=== PATIENT | male | born 1960 | race Caucasian/White ===

== ENCOUNTER 2016-10-20 07:19 | Day surgery (SDC) | payer BC ==
--- NOTE | 2016-10-10 00:19 | HP ---
CC: Dr. Cole Zamarripa * PREOPERATIVE HISTORY AND PHYSICAL: DATE OF PREOPERATIVE HISTORY AND PHYSICAL EXAMINATION: 10/09/16 DATE OF ADMISSION: 10/20/16 This patient is scheduled for same-day surgery admission by Dr. Santoro on 10/20/16. ATTENDING SURGEON: Hermes Santoro MD * (dictated by Lane Lin NP). CHIEF COMPLAINT: Left inguinal hernia. HISTORY OF PRESENT ILLNESS: The patient is a 56-year-old male referred to Dr. Santoro from Dr. Zamarripa for evaluation of a left inguinal hernia. The patient noticed this recently after doing some work at home lifting a railroad tie and noted that a lump popped out in the left groin region. He was able to reduce it and reports mild discomfort and denies any signs or symptoms to suggest incarceration or strangulation. He denies any dysuria. Dr. Santoro examined the patient and notes a reducible left inguinal hernia; the patient has undergone robotic prostatectomy in 2009 and therefore, Dr. Santoro has recommended open left inguinal hernia repair with mesh as a same-day surgery procedure. Dr. Santoro discussed the nature of surgical procedure, the relevant risks and benefits, and today, I reviewed the expected postoperative care and recovery. The patient has had a chance to ask questions and stated that he understands the information and is satisfied with the answers given to his questions. He will sign surgical consent on the day of surgery. PAST MEDICAL HISTORY: Prostate cancer. PAST SURGICAL HISTORY: Robotic prostatectomy, 2009 in [place]. MEDICATIONS: None currently. ALLERGIES: PENICILLIN causes rash. FAMILY HISTORY: No known anesthesia complications, bleeding tendencies or clotting disorders. Father has a history of diabetes, heart disease, and stroke. SOCIAL HISTORY: He is and is a smoker and drinks beer. Denies the use of other substances. 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 REVIEW OF SYSTEMS: General: No fevers, chills, night sweats, excessive fatigue , or weight loss. Endocrine: Diabetes or thyroid disease. Hematologic: No easy bruising or bleeding. No previous blood transfusions. No history of deep vein thrombosis or pulmonary embolism. Respiratory: He is a smoker; denies dyspnea on exertion or cough. Cardiovascular: Denies anginal chest pain or palpitations. Gastrointestinal: No nausea, vomiting, diarrhea, constipation. No change in bowel habits. No heartburn. Genitourinary: No dysuria. No hematuria. Musculoskeletal: No back or joint pain. Skin: No chronic rashes. Neurologic: No headache or blurred vision. General: No previous anesthesia complications. PHYSICAL EXAMINATION GENERAL SURVEY: The patient is a 56-year-old male, well developed, well nourished, in no acute distress. VITAL SIGNS: Height 68 inches, weight 164 pounds, body mass index 24.9. Blood pressure 150/90, pulse 76 and regular, respiratory rate 16, temperature 97.1. HEENT: Benign. NECK: Supple. No cervical lymphadenopathy. LUNGS: Breath sounds bilaterally clear and equal. HEART: Regular rate and rhythm. No murmurs or rubs appreciated. ABDOMEN: Active bowel sounds. Multiple well-healed surgical scars. Soft, nondistended, nontender throughout. No obvious masses, organomegaly, or evidence of umbilical or incisional hernias. Inguinal exam as done by Dr. Santoro revealed a reducible left inguinal hernia. No inguinal hernia noted on the right. Bilateral descended testes. RECTAL EXAM: Deferred. EXTREMITIES: Warm without edema or skin ulcerations. NEUROLOGIC: Alert and oriented x3, steady gait. BACK: No CVA tenderness. SKIN: Warm, dry, and intact. IMPRESSION: Left inguinal hernia. PLAN: Same-day surgery admission by Dr. Santoro on 10/20/16, for open left inguinal hernia with mesh. LANE LIN NP [id number]/[facility] #: [id number] MARGE
[~2016-10-20 07:19] MED LIST: Buffered Lidocaine 0.9% SYRIN* 5 ML/SYR SYRINGE INTRADERM ONE; Clindamycin 900 MG IVPREMIX(* 900 MG/50 ML SDV IV ONE; Famotidine IV* 10 MG/ML 2 ML (20 mg) IV ONE; Famotidine IV* 10 MG/ML 2 ML (20 mg) ONE; Morphine INJ* 2 MG/ML 1 ML CARPUJECT IV PRN; Ondansetron INJ* 2 MG/ML VIAL IV PRN; PROCHLORPERAZINE INJ 5 MG/ML 2 ML VIAL IV PRN; fentaNYL* 50 MCG/ML 2 ML VIAL (100 MCG VIAL) IV PRN; oxyCODONE/Acetamin 5/325 MG* TAB PO PRN
[2016-10-20] MEDS ORDERED: fentaNYL* 50 MCG/ML 2 ML VIAL (100 MCG VIAL) ONE (08:32)
[2016-10-20] MEDS ORDERED: Midazolam* 1 MG/ML 5 ML VIAL (5 MG) ONE (08:32)
[2016-10-20] MEDS ORDERED: KETAMINE HCL* 50 MG/ML 10 ML VIAL ONE (08:32)
[2016-10-20] MEDS ORDERED: Bupivacaine 0.5% SDV PF* 30 ML VIAL ONE (08:59)
[2016-10-20] MEDS ORDERED: Lidocaine 1% INJ* 10 MG/ML 30 ML SDV ONE (08:59)
[2016-10-20] MEDS ORDERED: Ketorolac INJ* 30 MG/ML 1 ML VIAL ONE (10:06)
[2016-10-20] MEDS ORDERED: Propofol* 10 MG/ML 20 ML BTL IV PUSH ONE (10:06)
[2016-10-20] MEDS ORDERED: Lidocaine 2% PF * 5 ML VIAL ONE (10:06)
[2016-10-20] MEDS ORDERED: Ondansetron INJ* 2 MG/ML VIAL ONE (10:06)
--- NOTE | 2016-10-20 10:38 | SURGPN ---
Brief Operative Note - Surgery Procedures: Procedures Preop Dx: L ingunial hernia Postop Dx: L indirect ingunial hernia Procedure: Open L indirect inguinal hernia repair with mesh Anesthesia: MAC - Speer Surgeon: Yvan Ass: GUY Deluca EBL: <10 mL Specimen: none Fluids: 800 mL LR Drains: none Findings: none
[2016-10-20 11:47] VITALS: BP 139/86
--- NOTE | 2016-10-21 12:51 | OP ---
CC: Cole Zamarripa MD OPERATIVE REPORT: DATE OF OPERATION: 10/20/16 DATE OF : 60 SURGEON: Hermes Santoro MD LOCKSTITCH SLEEVE SETTER: DELISA Mehta student. ANESTHESIOLOGIST: Dr. Fuller. ANESTHESIA: Local MAC. PRE-OPERATIVE DIAGNOSIS: Left inguinal hernia. POST-OPERATIVE DIAGNOSIS: Left inguinal hernia. OPERATIVE PROCEDURE: Open left inguinal hernia repair with mesh. ESTIMATED BLOOD LOSS: Minimal. IV FLUIDS: Crystalloid. SPECIMEN: None. DRAINS: None. COMPLICATIONS: None. COUNTS: Needle, instrument, and sponge counts were correct. DESCRIPTION OF PROCEDURE: The patient was brought to the operating room and placed on the table supine. Sequential compression devices were placed on both lower extremities. Intravenous sedation was administered. His left groin was prepped and draped in the usual sterile fashion. Time-out was performed. He received appropriate antibiotics. Local anesthetic was infiltrated into the field block in the left groin. An oblique incision was created approximately 5 cm long, subcutaneous tissues were divided. External oblique aponeurosis was identified and infiltrated with additional anesthetic beneath it and then opened along the line of its fibers through the superficial ring. The underlying ilioinguinal nerve was identified , preserved in the medial position. The contents of the inguinal canal were then isolated with 0.25-inch Gladys drain at the level of the pubic tubercle. An indirect inguinal hernia sac was identified. Cord structures were dissected free from this. The sac was reduced beyond the deep ring and then repair was performed with a polypropylene mesh plug and onlay patch. The plug was fashioned into a cone shape and positioned into the space of the deep ring and sutured to the overlying musculature with interrupted 2-0 Polysorb. An onlay patch was fashioned and sutured to the pubic tubercle, shelving edge of the inguinal ligament and the conjoint tendon with interrupted 2-0 Polysorb sutures. The tails were fashioned in the mesh laterally to allow the egress of the spermatic cord, tacked beneath the external oblique laterally and reconstituted laterally with a single suture of a 2- 0 Surgipro. The ilioinguinal nerve was returned to its anatomic position and the external oblique aponeurosis was run close with 2-0 Polysorb. The Neeraj's was closed with 3-0 Polysorb in an interrupted fashion. Skin was closed with 4-0 Monocryl in a subcuticular fashion. Steri-Strips were applied. The patient tolerated the procedure well, was awakened and transferred to recovery room in stable condition. [id number]/[facility] #: [id number] [facility] [place] [facility]ISION[facility]
== END 2016-10-20 11:50 | disposition home or self-care (01) ==
LOC: OR 07:19
PROVIDERS: ATTEND Surgery
DX: K40.90 Unilateral inguinal hernia, without obstruction or gangrene, not specified as recurrent (principal); Z85.46 Personal history of malignant neoplasm of prostate; Z88.0 Allergy status to penicillin; F17.200 Nicotine dependence, unspecified, uncomplicated
CPT/HCPCS: C1781; J1885; J2001; J2250; J2405; J2704; J3010

== ENCOUNTER 2023-09-23 14:25 | Observation (INO) ==
[2023-09-23 15:14] LABS: INR 1.22 (0.83-1.13)
[2023-09-23 15:20] LABS: Hematocrit 47.4 % (38-53); Hemoglobin 15.9 g/dL (13.2-16.3); Mean Corpuscular Hemoglobin 32.2 pg (27-33); Mean Corpuscular Hgb Conc 33.5 g/dL (31-36); Mean Corpuscular Volume 96.3 fL (80-97); Red Blood Count 4.93 10^6/uL (4.06-5.63); Red Cell Distribution Width 14.4 % (12-17); White Blood Count 6.7 10^3/uL (3.6-10.2)
[2023-09-23 15:30] LABS: High Sens Troponin Baseline 26 pg/mL (<20)
[2023-09-23 15:47] LABS: ABS Basophils 0.1 10^3/uL (0.0-0.1); ABS Eosinophils 0.1 10^3/uL (0.0-0.5); ABS Lymphocytes 1.3 10^3/uL (1.0-4.8); ABS Monocytes 0.6 10^3/uL (0.0-1.1); ABS Neutrophils 4.6 10^3/uL (1.5-7.6); ABS Nucleated RBC 0.01 10^3/ul; ALT 31 U/L (7-52); AST 25 U/L (13-39); Albumin 4.2 g/dL (3.2-5.2); Albumin/Globulin Ratio 2.1 (1-3); Alkaline Phosphatase 119 U/L (35-149); Anion Gap 7 mmol/L (2-16); Blood Urea Nitrogen 24 mg/dL (6-24); CO2 Carbon Dioxide 26 mmol/L (22-32); Calcium 9.7 mg/dL (8.6-10.3); Chloride 109 mmol/L (101-111); Creatinine, Serum 1.03 mg/dL (0.67-1.17); Eosinophil % 1.1 %; Glucose 111 mg/dL (70-100); Lymphocyte % 19.4 %; Mean Platelet Volume 10.2 fL (7.5-11.2); Nucleated Red Blood Cells % 0.1 %/100WBC (0.0-0.8); Platelet Count 175 10^3/uL (150-450); Sodium 142 mmol/L (135-145); Total Bilirubin 2.5 mg/dL (0.2-1.0); Total Protein 6.2 g/dL (6.4-8.9); eGFR CKD-EPI 81.6 (>60)
[2023-09-23 16:56] LABS: High Sensitivity Troponin 1 Hr 29 pg/mL (<20)
[2023-09-23] MEDS: Furosemide 40 mg/4 ml IV VIAL IV SLOW PU ONE (18:20)
[2023-09-23 20:15] LABS: Magnesium 2.1 mg/dL (1.9-2.7)
[2023-09-23 20:31] LABS: TSH Ultra Thyroid Stim Horm 2.03 mcIU/mL (0.34-5.60)
[2023-09-23 21:04] LABS: Alcohol, S < 13 mg/dL (<13)
[2023-09-23] MEDS: Enoxaparin 40 MG/0.4 ML SYR SUBCUT SCH (21:42)
[2023-09-24 06:44] LABS: Hematocrit 45.8 % (38-53); Hemoglobin 15.9 g/dL (13.2-16.3); Mean Corpuscular Hemoglobin 33.2 pg (27-33); Mean Corpuscular Hgb Conc 34.8 g/dL (31-36); Mean Corpuscular Volume 95.3 fL (80-97); Red Blood Count 4.81 10^6/uL (4.06-5.63); Red Cell Distribution Width 14.4 % (12-17); White Blood Count 5.7 10^3/uL (3.6-10.2)
[2023-09-24 06:57] LABS: Albumin 4.1 g/dL (3.2-5.2); Albumin/Globulin Ratio 1.9 (1-3); Calcium 9.3 mg/dL (8.6-10.3); Creatinine, Serum 0.95 mg/dL (0.67-1.17); Globulin 2.2 g/dL (2-4); Magnesium 2.1 mg/dL (1.9-2.7); Phosphorus 4.4 mg/dL (2.5-5.0); Potassium 3.7 mmol/L (3.5-5.0); Total Bilirubin 2.7 mg/dL (0.2-1.0); Total Protein 6.3 g/dL (6.4-8.9); eGFR CKD-EPI 89.9 (>60)
[2023-09-24 08:03] LABS: ABS Basophils 0.1 10^3/uL (0.0-0.1); ABS Eosinophils 0.1 10^3/uL (0.0-0.5); ABS Lymphocytes 1.5 10^3/uL (1.0-4.8); ABS Monocytes 0.6 10^3/uL (0.0-1.1); ABS Neutrophils 3.4 10^3/uL (1.5-7.6); ABS Nucleated RBC 0.01 10^3/ul; Eosinophil % 1.9 %; Large Platelets Present; Lymphocyte % 26.2 %; Mean Platelet Volume 9.7 fL (7.5-11.2); Nucleated Red Blood Cells % 0.1 %/100WBC (0.0-0.8); Platelet Count 164 10^3/uL (150-450)
[2023-09-24] MEDS: NS 0.9% 1000 ml BAG 1,000 ML IV SCH ×2 (08:04→14:15)
[2023-09-24] MEDS: Sulfur Hexaflouride MICROSPHR 25 MG VIAL IV ONE (09:45)
[2023-09-24] MEDS ORDERED: Lidocaine 1% MPF 5 ML VIAL ONE (11:52)
[2023-09-24] MEDS ORDERED: fentaNYL 100 mcg/2 ml 50 MCG/ML VIAL ONE ×2 (11:52→14:13)
[2023-09-24] MEDS ORDERED: nitroGLYCERIN DRIP 25,000 MCG/250 ML BTL ONE (11:52)
[2023-09-24] MEDS ORDERED: Midazolam 5 mg/5 ml VIAL 1 mg/ml 5 ml VIAL (5 mg) ONE ×2 (11:52→14:13)
[2023-09-24] MEDS ORDERED: Heparin 2 UNITS/ML 1000 mls 1,000 ML IV ONE (11:52)
[2023-09-24] MEDS ORDERED: Heparin 1,000 UNIT/ML 10 ml (10,000 UNITS) CATHLAB/DIALYSIS ONE (11:52)
[2023-09-24] MEDS ORDERED: VERAPAMIL 2.5 MG/ML 2 ML VIAL ** 5 mg/2 ml ONE (11:52)
[2023-09-24] MEDS ORDERED: Iohexol 350 (CONTRAST) 200 ML MDV IV ONE (11:53)
[2023-09-24] MEDS ORDERED: Iohexol 350 (CONTRAST) 100 ML PAK IV ONE (11:53)
[2023-09-24] MEDS ORDERED: Sulfur Hexaflouride MICROSPHR 25 MG VIAL ONE (11:57)
[2023-09-24] MEDS: Midazolam 10 mg/10 ml VIAL 1 mg/ml 10 ml VIAL (10 mg) IV SLOW PU ONE (13:32)
[2023-09-24] MEDS: fentaNYL 100 mcg/2 ml 50 MCG/ML VIAL IV SLOW PU ONE (13:32)
[2023-09-24 13:51] LABS: POC SO2 94 %
[2023-09-24] MEDS: Furosemide 40 mg/4 ml IV VIAL IV SLOW PU ONE (20:41)
[2023-09-25 07:01] LABS: Calcium 9.8 mg/dL (8.6-10.3); Magnesium 2.2 mg/dL (1.9-2.7); Potassium 4.1 mmol/L (3.5-5.0); eGFR CKD-EPI 84.6 (>60)
[2023-09-25 09:45] VITALS: BP 95/76
== END 2023-09-25 12:11 | disposition home or self-care (01) ==
LOC: EDHOLD 14:25 → ED 14:25 → SUATTDRO 18:41 → EDHOLD 09-24 12:57 → AA 09-24 12:59 → MEDTELE 09-24 14:41
PROVIDERS: ADMIT Internal Medicine; ATTEND Hospitalist